=== PATIENT | female | born 1950 | race Caucasian/White ===

== ENCOUNTER 2018-10-22 14:27 | Inpatient (IN) | payer OTHER ==
[~2018-10-22] VITALS: Ht 170.2 cm; Wt 78.6 kg
[2018-10-22 16:12] LABS: BASOPHILS 0.2 % (0-2); EOSINOPHILS 0.2 % (0-7); HEMATOCRIT 40.3 % (36.0-48.0); HEMOGLOBIN 13.6 g/dL (12-16); IMMATURE GRANULOCYTES 0.2 % (0-5); LYMPHOCYTES 14.5 % (15-50); MCH 29.8 pg (26.0-34.0); MCHC 33.7 g/dL (31.0-37.0); MCV 88.4 fL (80.0-100.0); MEAN PLATELET VOLUME 10.8 fL (7.4-10.4); MONOCYTES 7.3 % (2-11); NEUTROPHILS 77.6 % (40-80); PLATELET COUNT 258 10x3/uL (130-400); RBC 4.56 10x6/uL (4.00-5.40); RDW 12.6 % (11.5-14.5); WBC 12.3 10x3/uL (4.8-10.8)
[2018-10-22 16:36] LABS: ALBUMIN 3.8 g/dL (3.4-5.0); ALKALINE PHOSPHATASE 52 U/L (46-116); ALT (SGPT) 14 U/L (10-68); BILIRUBIN - TOTAL 0.55 mg/dL (0.2-1.3); CALC OSMOLALITY 277 mosm/kg (275-300); CARBON DIOXIDE 23.7 mmol/L (21.0-32.0); CHLORIDE - SERUM 103 mmol/L (98-107); CREATININE - SERUM 0.7 mg/dL (0.6-1.3); GLUCOSE 95 mg/dL (74-106); POTASSIUM - SERUM 3.7 mmol/L (3.5-5.1); PROTEIN - SERUM 7.9 g/dL (6.4-8.2); SODIUM 139 mmol/L (136-145); UREA NITROGEN 12 mg/dL (7-18); eGFR NON AFRICAN AMERICAN 88 mL/min (90-120)
[2018-10-22 16:45] VITALS: BP 109/56
--- NOTE | 2018-10-22 17:40 | NUR ---
DR. THOMAS AT BEDSIDE. CULTURES SENT TO THE LAB.
[2018-10-22 19:38] VITALS: BP 159/67
[2018-10-22 20:16] VITALS: BP 156/87
[2018-10-22 21:00] VITALS: BP 148/65
[2018-10-22 21:46] VITALS: BP 122/54
--- NOTE | 2018-10-22 23:00 | NUR ---
REC'D PATIENT FROM ER. NO S/S OF DISTRESS. GUEST AT BEDSIDE. COMPLETED ASSESSMENT AND HISTORY. PATIENT DENIES PAIN AND NEEDS AT THIS TIME. BED IN LOWEST POSITION AND CALL LIGHT WITHIN REACH. ENCOURAGED THE PATIENT TO CALL IF SHE HAS NEEDS.
[2018-10-22 23:03] VITALS: BP 153/71; Ht 170.2 cm; Wt 78.6 kg
[2018-10-22] MEDS ORDERED: ZANTAC300 MG PO (23:11)
[2018-10-22] MEDS ORDERED: MULTI-DAY VITAM1 TAB PO (23:13)
[2018-10-23] VITALS: BP 153/71
[2018-10-23 04:00] VITALS: BP 148/63
--- NOTE | 2018-10-23 07:00 | NUR ---
REPORT RECIEVED ASSUMED CARE. PATIENT IN BED WITH EYES CLOSED RESTING QUIETLY. IV INTACT. CALL LIGHT WITHIN REACH.
[2018-10-23 07:04] LABS: BASOPHILS 0.3 % (0-2); EOSINOPHILS 0.4 % (0-7); HEMATOCRIT 35.8 % (36.0-48.0); HEMOGLOBIN 11.8 g/dL (12-16); IMMATURE GRANULOCYTES 0.1 % (0-5); LYMPHOCYTES 17.1 % (15-50); MCH 29.7 pg (26.0-34.0); MCV 90.2 fL (80.0-100.0); MEAN PLATELET VOLUME 11.1 fL (7.4-10.4); MONOCYTES 8.5 % (2-11); NEUTROPHILS 73.6 % (40-80); PLATELET COUNT 222 10x3/uL (130-400); RBC 3.97 10x6/uL (4.00-5.40); RDW 12.9 % (11.5-14.5)
[2018-10-23 07:23] LABS: ANION GAP 12.5 mmol/L (8-16); CALCIUM 8.7 mg/dL (8.5-10.1); CARBON DIOXIDE 26.5 mmol/L (21.0-32.0)
[2018-10-23 07:26] LABS: CREATININE - SERUM 0.9 mg/dL (0.6-1.3)
--- NOTE | 2018-10-23 08:55 | OP ---
PATIENT NAME: MARIAN CRUZ MEDICAL RECORD: [id number] :48 LOCATION:[id number] ADMISSION DATE:10/22/18 SURGEON: ED THOMAS DO DATE OF OPERATION: 10/22/2018 PROCEDURE PERFORMED: Right index finger incision and debridement. PREOPERATIVE DIAGNOSES: Right finger infection, right index finger infection, possible tenosynovitis. POSTOPERATIVE DIAGNOSES: Right finger infection, right index finger infection, possible tenosynovitis. INDICATIONS: Ms. Cruz is a 67-year-old right hand dominant female who woke up with increased pain in her right index finger that had been hurting her for the last couple of days and then red. She developed a blister on the dorsal aspect of it and the redness started to creep up her hand even into her forearm. She was brought to the ER by her family. They called me and I informed her that we should probably get this incisioned and open this up to let some of the pressure off due to the fusiform swelling and signs of flexor tenosynovitis as well as a large bulla that she had on the dorsum at the DIP, open that up to kind of relieve the pressure and let the infection out. She was started on vancomycin. She was okay with me doing that at the bedside in the ER with a local digital block. SURGEON: Ed Thomas DO DESCRIPTION OF THE PROCEDURE: I did a digital block with 1% lidocaine without epinephrine. The right index finger prepped first with Betadine the whole finger and draped it and then injected approximately 7 mL of 1% lidocaine on the dorsum on the radial and ulnar side of the index finger. Once the finger was numb, I took 15 blade scalpel to get to the bulla that was on the dorsum of the index finger at the distal interphalangeal joint, this ruptured and a large amount of purulent fluid rushed out of the bulla. This was cultured at that time and then on the flexor side and palmar side of the finger, a complete Hong incision was made over P1 and P2 and then a single incision was made at the distal tip on the midline. A hemostat was taken at that time to spread the tissue and some purulent sanguineous type fluid came out of the incisions on the palmar side as well. The flexor tendon sheath was entered and opened up over P1 and P2 once these sites were opened as well as a distal tip. Hemostat was used to break up any loculations at that area as well. The swelling went down immediately as well as the redness. The Betadine was then rubbed all over the whole finger and was washed with lidocaine and dressed with Adaptic and 4 x 4 and 2-inch stockinette was placed over the finger. She tolerated this well. Plan will be to admit her to medicine and give her IV antibiotics. We will check again in the morning if she is not improved we will plan a formal I&D in the OR tomorrow and she was okay with that plan. TRANSINT:[id number] Voice Confirmation ID: [id number] DOCUMENT ID: [id number] OPERATIVE REPORT [id number] MARIAN CRUZ,ED Luque DO at 0855 CC: [id number] DICTATION DATE: 10/22/18 183 ANIMATOR: 10/23/[address] [facility] [address] [place] [address]
[2018-10-23 09:00] VITALS: BP 162/82
--- NOTE | 2018-10-23 10:09 | NUR ---
PATIENT TELEMETRY REMOVED BECAUSE PATIENT DOES NOT HAVE A HEART HISTORY AND IT IS NEEDED FOR ANOTHER PATIENT WITH HEART PROBLEMS. PATIENT IN BED WITH IV INTACT. NO COMPLAINTS OR SIGNS OF DISTRESS. CALL LIGHT WITHIN REACH.
[2018-10-23 12:00] VITALS: BP 128/68
--- NOTE | 2018-10-23 19:12 | NUR ---
PATIENT IN BED WITH IV INTACT. NO COMPLAINTS OR SIGNS OF DISTRESS. DRESSING INTACT. VANC INFUSING AT THIS TIME. CALL LIGHT WITHIN REACH.
--- NOTE | 2018-10-23 19:15 | NUR ---
RECEIVED CARE FROM DAY NURSE. SITTING IN BED WATCHING TV. REPORTS NO NEEDS AT THIS TIME. CALL LIGHT AT SIDE. IV LEFT FA PATENT AND INFUSING VANC AT THIS TIME.
[2018-10-23 20:47] VITALS: BP 174/70
[2018-10-24 00:41] VITALS: BP 180/74
--- NOTE | 2018-10-24 03:54 | NUR ---
PT SLEEPING. BREATHING EVEN AND UNLABORED. WILL CONTINUE POC.
[2018-10-24 04:00] VITALS: BP 150/76
--- NOTE | 2018-10-24 07:40 | NUR ---
ASSESSMENT PER FLOW SHEET. PT IS WITHOUT DISTRESS.DR THOMAS TO PT AND HE CHANGED DRESSING TO RIGHT INDEX FINGER.PT DENIES NEEDS.CALL LIGHT IN REACH
[2018-10-24 09:14] VITALS: BP 196/76
[2018-10-24 11:22] LABS: BASOPHILS 0.3 % (0-2); EOSINOPHILS 1.7 % (0-7); HEMATOCRIT 36.8 % (36.0-48.0); HEMOGLOBIN 12.2 g/dL (12-16); IMMATURE GRANULOCYTES 0.2 % (0-5); LYMPHOCYTES 23.7 % (15-50); MCH 29.5 pg (26.0-34.0); MCHC 33.2 g/dL (31.0-37.0); MCV 89.1 fL (80.0-100.0); MEAN PLATELET VOLUME 11.1 fL (7.4-10.4); MONOCYTES 7.7 % (2-11); NEUTROPHILS 66.4 % (40-80); PLATELET COUNT 220 10x3/uL (130-400); RBC 4.13 10x6/uL (4.00-5.40); RDW 12.5 % (11.5-14.5)
[2018-10-24 11:27] LABS: WBC 5.9 10x3/uL (4.8-10.8)
--- NOTE | 2018-10-24 11:38 | NUR ---
REMAINS WITHOUT DISTRESS. DENIES NEEDS
[2018-10-24 12:00] VITALS: BP 167/71
--- NOTE | 2018-10-24 13:07 | NUR ---
FAMILY TO VISIT. PT IS WITHOUT NEEDS.
--- NOTE | 2018-10-24 13:17 | NUR ---
CONTACT ISOLATION PER MICRO. PT INFORMED AND TEACHING WITH FAMILY.
--- NOTE | 2018-10-24 17:30 | NUR ---
IV TOP OF LEFT FOREARM TENDER,DCD WITH CATH TIP INTACT. IV RESITED TO LEFT OUTER FOREARM X2 STICKS USING ASEPTIC TECH,20G.
--- NOTE | 2018-10-24 18:57 | NUR ---
REMAINS WITHOUT NEEDS.PT IS WITHOUT CHANGE.CONT PLAN OF CARE
--- NOTE | 2018-10-24 20:00 | NUR ---
ASSESSMENT PER FLOWSHEET. DRESSING TO RIGHT INDEX FINGER INCISION C/D/I. IV PATENT LEFT FOREARM SALINE LOCKED. SR UP X1 CALL LIGHT WITHIN REACH UP AD SEA IN ROOM.
[2018-10-24 21:52] VITALS: BP 185/82
--- NOTE | 2018-10-24 22:00 | NUR ---
RSTING QUIETLY DENIES NEEDS.
--- NOTE | 2018-10-25 | NUR ---
EYES CLOSED RESPIRATIONS WITH EASE AND UNLABORED.
[2018-10-25 04:41] LABS: BASOPHILS 0.7 % (0-2); EOSINOPHILS 3.2 % (0-7); HEMATOCRIT 36.3 % (36.0-48.0); LYMPHOCYTES 33.9 % (15-50); MCH 29.4 pg (26.0-34.0); MCHC 33.1 g/dL (31.0-37.0); MEAN PLATELET VOLUME 10.5 fL (7.4-10.4); MONOCYTES 8.9 % (2-11); NEUTROPHILS 53.3 % (40-80); PLATELET COUNT 216 10x3/uL (130-400); RBC 4.08 10x6/uL (4.00-5.40); RDW 12.4 % (11.5-14.5)
[2018-10-25 04:50] VITALS: BP 176/71
[2018-10-25 05:01] LABS: CALC OSMOLALITY 284 mosm/kg (275-300); CALCIUM 8.4 mg/dL (8.5-10.1); CARBON DIOXIDE 28.9 mmol/L (21.0-32.0); CHLORIDE - SERUM 106 mmol/L (98-107); CREATININE - SERUM 0.8 mg/dL (0.6-1.3); GLUCOSE 99 mg/dL (74-106); POTASSIUM - SERUM 3.8 mmol/L (3.5-5.1); SODIUM 142 mmol/L (136-145); UREA NITROGEN 17 mg/dL (7-18); VANCOMYCIN - TROUGH 13.1 ug/mL (10.0-20.0); eGFR NON AFRICAN AMERICAN 75 mL/min (90-120)
--- NOTE | 2018-10-25 08:00 | NUR ---
ASSESSMENT PER FLOW SHEET. PT IS WITHOUT DISTRESS. DRESSING TO RIGHT INDEX FINGER IN PLACE WITH SMALL AMOUNT OF DRAINAGE ON DRESSING.DENIES NEEDS.CONTACT ISOLATION MAINTAINED
[2018-10-25 08:36] VITALS: BP 138/81
[2018-10-25] MEDS ORDERED: LISINOPRIL10 MG PO (10:08)
[2018-10-25] MEDS ORDERED: BACTRIM DS1 TAB PO (10:08)
--- NOTE | 2018-10-25 11:40 | MORECARE ---
CASE MANAGEMENT DISCHARGE SUMMARY PATIENT: MARIAN CRUZ UNIT: [id number] ADM DATE: 10/22/18 AGE: 67 : 49 SEX: F ROOM/BED: D.2223 AUTHOR: SONAL BERNABE PHYSICIAN: REFERRING PHYSICIAN: CJ ELLISON MD DATE OF SERVICE: 10/25/18 Discharge Plan Patient Name: MARIAN CRUZ [facility] [facility] 1950 Planned Disposition: Home Anticipated Discharge Date: 10/25/18 Discharge Date: Expected LOS: 3 Initial Reviewer: [email or web address] Initial Review Date: 10/25/2018 Generated: 10/25/18 12:40 pm Patient Name: MARIAN CRUZ Page [id number] at 1140 All edits/amendments must be made on the electronic document DICTATION DATE: 10/25/18 1140 AEROTRIANGULATION SPECIALIST: PEGGY 10/25/18 1140 RPT#: [id number] DC DATE: STATUS: ADM IN [facility] [address] [place] [address] END OF REPORT
--- NOTE | 2018-10-25 11:49 | MORECARE ---
CASE MANAGEMENT DISCHARGE SUMMARY PATIENT: MARIAN CRUZ UNIT: [id number] ADM DATE: 10/22/18 AGE: 67 : 49 SEX: F ROOM/BED: D.2223 AUTHOR: FLORECITADOC PHYSICIAN: REFERRING PHYSICIAN: CJ ELLISON MD DATE OF SERVICE: 10/25/18 Discharge Plan Patient Name: MARIAN CRUZ Facility: [facility]:[place] : 1950 Planned Disposition: Home Anticipated Discharge Date: 10/25/18 Discharge Date: Expected LOS: 3 Initial Reviewer: [email or web address] Initial Review Date: 10/25/2018 Generated: 10/25/18 12:48 pm Comments DCP- Discharge Planning Updated by [email or web address]: Trupti Dolan on 10/25/18 10:[address] Patient Name: MARIAN CRUZ Admission Status: ER Accout number: [id number] Admission Date: 10-22-2018 : 1950 Admission Diagnosis: Attending: CJ ELLISON Current LOS: 3 Anticipated DC Date: 10-25-2018 Planned Disposition: Home Primary Insurance: [employer] Discharge Planning Comments: CM met with patient to discuss discharge planning, she is alone in the room. States she lives with her . She is independent with all ADL's and IADL's. She states she takes care of her . Declines need for DME or home health. No needs identified. CM will continue to follow and assist with discharge planning/needs. Associate Professor Of Law: Trupti Dolan DCPIA - Discharge Planning Initial Assessment Updated by [email or web address]: Trupti Dolan on 10/25/18 11:40 am * Is the patient Alert and Oriented? Yes * How many steps to enter\exit or inside your home? Ramp/0 * PCP Jose * [facility] * Preadmission Environment Home with Family * ADLs Independent * Equipment None * List name and contact numbers for known caregivers / representatives who currently or will assist patient after discharge: Andreia Sommers - [phone] * Verbal permission to speak to the caregivers and representatives has been obtained from the patient. Yes * Community resources currently utilized None * Additional services required to return to the preadmission environment? No * Can the patient safely return to the preadmission environment? Yes * Has this patient been hospitalized within the prior 30 days at any hospital? No Coverage Notice Reviewer: [email or web address] Mile Dolan Notice Issued Date-Time: 10/25/2018 11:44 Notice Type: IM Discharge Notice Notice Delivered To: Patient Relationship to Patient: Self Body Former Name: Delivery Method: HAND - Hand Delivered Alida Days: Prior Verbal Notification: Recipient Understood Notice: Yes Recipient Signature: Yes Med Rec Note Co-signed by Attending: Coverage Notice Comment: IMM explained, signed, copy given, original placed in MR. Last DP export: 10/25/18 10:40 a Patient Name: MARIAN CRUZ Page [id number] at 1149 All edits/amendments must be made on the electronic document DICTATION DATE: 10/25/188 BRAZER RESISTANCE: PEGGY 10/25/18 1148 RPT#: [id number] DC DATE: STATUS: ADM IN [facility] [address] [place] [address] END OF REPORT
--- NOTE | 2018-10-25 12:15 | NUR ---
DISCHARGE INSTRUCTIONS,STATES UNDERSTANDING. IV DCD WITH CATH TIP INTACT.
--- NOTE | 2018-10-25 12:39 | NUR ---
DRESSING CHANGE TO RIGHT INDEX FINGER ORDERED. SUPPLIE WITH PT FOR HOME USE.
--- NOTE | 2018-10-25 12:40 | NUR ---
LEFT UNIT VIA AMBULATORY. DECLINED WHEELCHAIR
--- NOTE | 2018-10-26 11:52 | MORECARE ---
CASE MANAGEMENT DISCHARGE SUMMARY PATIENT: MARIAN CRUZ UNIT: [id number] ADM DATE: 10/22/18 AGE: 67 : 49 SEX: F ROOM/BED: D.2223 AUTHOR: FLORECITADOC PHYSICIAN: REFERRING PHYSICIAN: CJ ELLISON MD DATE OF SERVICE: 10/26/18 Discharge Plan Patient Name: MARIAN CRUZ Facility: [facility]:[place] : 1950 Planned Disposition: Home Anticipated Discharge Date: 10/25/18 Discharge Date: 10/25/2018 Expected LOS: 3 Initial Reviewer: [email or web address] Initial Review Date: 10/25/2018 Generated: 10/26/18 12:52 pm Comments DCP- Discharge Planning Updated by [email or web address]: Trupti Dolan on 10/25/18 10:[address] Patient Name: MARIAN CRUZ Admission Status: ER Accout number: [id number] Admission Date: 10-22-2018 : 1950 Admission Diagnosis: Attending: CJ ELLISON Current LOS: 3 Anticipated DC Date: 10-25-2018 Planned Disposition: Home Primary Insurance: [employer] Discharge Planning Comments: CM met with patient to discuss discharge planning, she is alone in the room. States she lives with her . She is independent with all ADL's and IADL's. She states she takes care of her . Declines need for DME or home health. No needs identified. CM will continue to follow and assist with discharge planning/needs. Neurodiagnostic Technologist: Trupti Dolan DCPIA - Discharge Planning Initial Assessment Updated by [email or web address]: Trupti Dolan on 10/25/18 11:40 am * Is the patient Alert and Oriented? Yes * How many steps to enter\exit or inside your home? Ramp/0 * PCP Jose * [facility] [address] * Preadmission Environment Home with Family * ADLs Independent * Equipment None * List name and contact numbers for known caregivers / representatives who currently or will assist patient after discharge: Andreia Sommers - [phone] * Verbal permission to speak to the caregivers and representatives has been obtained from the patient. Yes * Community resources currently utilized None * Additional services required to return to the preadmission environment? No * Can the patient safely return to the preadmission environment? Yes * Has this patient been hospitalized within the prior 30 days at any hospital? No Coverage Notice Reviewer: [email or web address] Mile Dolan Notice Issued Date-Time: 10/25/2018 11:44 Notice Type: IM Discharge Notice Notice Delivered To: Patient Relationship to Patient: Self Executive Casino Host Name: Delivery Method: HAND - Hand Delivered Alida Days: Prior Verbal Notification: Recipient Understood Notice: Yes Recipient Signature: Yes Med Rec Note Co-signed by Attending: Coverage Notice Comment: IMM explained, signed, copy given, original placed in MR. Stone DP export: 10/25/18 10:48 a Patient Name: MARIAN CRUZ Page 44102 at 1152 All edits/amendments must be made on the electronic document DICTATION DATE: 10/26/18 1151 POULTRY PICKER: PEGGY 10/26/18 1151 RPT#: [id number] DC DATE:10/25/18 STATUS: DIS IN [facility] [address] [place] [address] END OF REPORT
== END 2018-10-25 12:40 | disposition home or self-care (01) | DRG 581 ==
LOC: D.ER 14:27 → D.MS 16:02 → D.EDHOLD 16:02 → D.MS 19:53
PROVIDERS: Emergency Medicine; Internal Medicine Nephrology; Orthopaedic Surgery; ADMIT Emergency Medicine
PROC: 0J9J0ZZ Drainage of Right Hand Subcutaneous Tissue and Fascia, Open Approach (ICD-10-PCS; principal; 2018-10-22)
DX: L03.011 Cellulitis of right finger (principal); B95.62 Methicillin resistant Staphylococcus aureus infection as the cause of diseases classified elsewhere; I10 Essential (primary) hypertension; I88.9 Nonspecific lymphadenitis, unspecified; M65.841 Other synovitis and tenosynovitis, right hand

== ENCOUNTER 2019-10-24 11:23 | Emergency (ER) | payer OTHER ==
[~2019-10-24] VITALS: Ht 170.2 cm; Wt 79.5 kg
[~2019-10-24 11:23] MED LIST: BACTRIM DS1 TAB PO; LISINOPRIL10 MG PO; MULTI-DAY VITAM1 TAB PO; ZANTAC300 MG PO
[2019-10-24 11:30] VITALS: Ht 170.2 cm; Wt 79.5 kg
[2019-10-24 12:11] LABS: CALC OSMOLALITY 279 mosm/kg (275-300); CALCIUM 9.3 mg/dL (8.5-10.1); CARBON DIOXIDE 29.5 mmol/L (21.0-32.0); CHLORIDE - SERUM 102 mmol/L (98-107); CREATININE - SERUM 0.9 mg/dL (0.6-1.3); GLUCOSE 88 mg/dL (74-106); POTASSIUM - SERUM 3.6 mmol/L (3.5-5.1); SODIUM 140 mmol/L (136-145); UREA NITROGEN 18 mg/dL (7-18); eGFR NON AFRICAN AMERICAN 66 mL/min (90-120)
[2019-10-24 12:22] LABS: INR 0.87 (0.85-1.17); PROTIME 11.8 SECONDS (11.6-15.0)
[2019-10-24 12:29] LABS: ALBUMIN 3.9 g/dL (3.4-5.0); ALKALINE PHOSPHATASE 60 U/L (46-116); ALT (SGPT) 19 U/L (10-68); BILIRUBIN - TOTAL 0.39 mg/dL (0.2-1.3); CKMB 0.6 U/L (0.0-3.6); CREATINE KINASE 60 UL (21-215); MAGNESIUM - SERUM 2.1 mg/dL (1.8-2.4); PROTEIN - SERUM 8.8 g/dL (6.4-8.2)
[2019-10-24 12:31] LABS: TROPONIN-I < 0.017 ng/mL (0.000-0.060)
[2019-10-24 12:45] LABS: APTT 20.4 SECONDS (22.8-39.4)
[2019-10-24 12:50] LABS: BASOPHILS 0.6 % (0-2); EOSINOPHILS 1.7 % (0-7); HEMATOCRIT 44.5 % (36.0-48.0); IMMATURE GRANULOCYTES 0.4 % (0-5); LYMPHOCYTES 41.6 % (15-50); MCH 30.1 pg (26.0-34.0); MCHC 33.7 g/dL (31.0-37.0); MCV 89.2 fL (80.0-100.0); MEAN PLATELET VOLUME 10.5 fL (7.4-10.4); MONOCYTES 8.3 % (2-11); NEUTROPHILS 47.4 % (40-80); RBC 4.99 10x6/uL (4.00-5.40); RDW 12.4 % (11.5-14.5); WBC 5.2 10x3/uL (4.8-10.8)
[2019-10-24 12:53] LABS: PLATELET COUNT 353 10x3/uL (130-400)
[2019-10-24] MEDS ORDERED: CLEOCIN HCL300 MG PO (13:19)
[2019-10-24 13:36] VITALS: BP 165/65
[2019-10-24] MEDS ORDERED: LISINOPRIL-HCT1 EAC4 PO (13:49)
== END 2019-10-24 13:37 | disposition home or self-care (01) ==
LOC: D.ER 11:23
PROVIDERS: Family Medicine
DX: M79.605 Pain in left leg (principal); L03.116 Cellulitis of left lower limb; I10 Essential (primary) hypertension; K21.9 Gastro-esophageal reflux disease without esophagitis